=== PATIENT | male | born 1990 | race Caucasian/White ===

== ENCOUNTER 2017-01-09 19:57 | Emergency (ER) | payer BC ==
[~2017-01-09] VITALS: Ht 185.4 cm; Wt 99.8 kg
--- NOTE | 2017-01-09 20:20 | NUR ---
Patient to ER bed 2 to gown for evaluation. Side rails up. Report given to CIARRA SIBLEY.
--- NOTE | 2017-01-09 20:30 | NUR ---
Pt states that he was moving boxes and he started feeling R elbow pain. It started swelling and he limited ROM. Will continue to monitor. No other injuries or complaints mentioned/noted. No distress noted.
[2017-01-09 20:37] VITALS: BP 155/124; PULSE 88; RESP 14; TEMP 98.9; O2SAT 100
--- NOTE | 2017-01-09 20:40 | NUR ---
ER Dr. Masters at bedside examining patient.
[2017-01-09] MEDS ORDERED: KETOROLAC TROMETHAMINE 60 MG/2 ML VIAL IM ONE (21:00)
[2017-01-09 21:19] VITALS: BP 144/85; PULSE 75; RESP 14; TEMP 98.9; O2SAT 98
--- NOTE | 2017-01-09 21:19 | NUR ---
Patient given written and verbal discharge instructions and verbalizes understanding. ER MD discussed with patient the results and treatment provided. Patient in stable condition. ID arm band removed. Rx of Motrin and [place] given. Patient educated on pain management and to follow up with PMD. Pain Scale 2/10. Opportunity for questions provided and answered.
--- NOTE | 2017-01-10 13:33 | NUR ---
Conducted follow up regarding elbow xray which final report indicates effusion and possible joint fracture. Patient will follow up with PCP for repeat xray in 4-5 days. there was no immobilization done during the visit last night. Patient will return to ER for sling.
== END 2017-01-09 21:19 | disposition home or self-care (01) ==
LOC: SED 19:57
DX: M25.521 Pain in right elbow (principal); I10 Essential (primary) hypertension
CPT/HCPCS: 73080; 96372; 99284; J1885